=== PATIENT | female | born 1955 | race African-American/Black ===

== ENCOUNTER 2018-08-05 19:13 | Inpatient (IN) ==
[2018-08-05] MEDS ORDERED: ONDANSETRON 4 MG/2 ML VIAL IV PRN (21:05)
[2018-08-05] MEDS ORDERED: ALBUTEROL 2.5 MG/3 ML NEB RESP TX PRN (21:17)
[2018-08-05] MEDS ORDERED: hydrALAZINE 20 MG/1 ML VIAL IV PRN (21:18)
[2018-08-05 21:50] LABS: Basophils # 0.1 10*3/uL (0.0-0.2); Basophils % 0.4 % (0.0-0.8); Hematocrit 29.1 VOL% (35.7-47.0); Hemoglobin 8.7 GM/DL (12.0-16.0); Immature Granulocytes % 0.8 %; Lymphocytes # 1.7 10*3/uL (1.4-4.0); Mean Corpuscular HGB Conc 29.9 GM/DL (32-36); Mean Corpuscular Volume 87.7 FL (87-102); Mean Platelet Volume 10.2 FL (9.6-12.0); Monocytes % 15.5 % (1.7-12.7); Neutrophils % 69.3 % (38.7-73.9); Platelet Count 248 T/CUMM (130-400); Red Blood Count 3.32 MC/CUMM (3.8-5.5); Red Cell Distribution Width 15.6 % (9.3-17.3); White Blood Count 11.8 T/CUMM (4-12)
[2018-08-05] MEDS: SODIUM CHLORIDE 0.9% 1,000 ML IV SCH (21:56)
[2018-08-05 22:16] LABS: Albumin 2.7 G/DL (3.4-5.0); Bilirubin,Total 0.6 MG/DL (0.2-1.0); Calcium 10.7 MG/DL (8.5-10.1); Osmolality,Calculated 281.4 MOS/KG (273-304)
[2018-08-05] MEDS: AZITHROMYCIN INJ 500 MG in SODIUM CHLORIDE 0.9% 250 ML IV SCH (23:03)
[2018-08-06] MEDS ORDERED: VANCOMYCIN INJ 1,750 MG in SODIUM CHLORIDE 0.9% 500 ML IV ONE
[2018-08-06] MEDS: NORTRIPTYLINE 25 MG CAPSULE PO SCH ×2 (00:35→20:07)
[2018-08-06] MEDS: SIMVASTATIN 20 MG TABLET PO SCH ×2 (00:35→20:07)
[2018-08-06] MEDS: ALBUTEROL/IPRATROPIUM 3 ML NEB RESP TX SCH ×4 (01:02→19:49)
[2018-08-06 05:29] LABS: Basophils # 0.1 10*3/uL (0.0-0.2); Basophils % 0.5 % (0.0-0.8); Eosinophils % 0.1 % (0.00-10.9); Hematocrit 30.6 VOL% (35.7-47.0); Hemoglobin 9.1 GM/DL (12.0-16.0); Immature Granulocytes % 0.8 %; Lymphocytes # 1.8 10*3/uL (1.4-4.0); Lymphocytes % 15.1 % (21.3-54.2); Mean Corpuscular HGB Conc 29.7 GM/DL (32-36); Mean Corpuscular Volume 88.2 FL (87-102); Mean Platelet Volume 10.2 FL (9.6-12.0); Monocytes % 20.3 % (1.7-12.7); Neutrophils % 63.2 % (38.7-73.9); Platelet Count 269 T/CUMM (130-400); Red Blood Count 3.47 MC/CUMM (3.8-5.5); Red Cell Distribution Width 15.7 % (9.3-17.3); White Blood Count 12.2 T/CUMM (4-12)
[2018-08-06 05:50] LABS: Band Neutrophils 2 % (0-10); Eosinophils 2 % (0-10); Hypochromasia 1+; Lymphocytes 13 % (20-55); Platelet Estimate Adequate; Segmented Neutrophils 68 % (50-85); Total Cells Counted 100
[2018-08-06 06:00] LABS: Calcium 10.5 MG/DL (8.5-10.1); Osmolality,Calculated 280.5 MOS/KG (273-304)
[2018-08-06] MEDS ORDERED: ENOXAPARIN 100 MG/ML SYRINGE SUBCUT ONE (06:26)
[2018-08-06] MEDS ORDERED: ENOXAPARIN 100 MG/ML SYRINGE SUBCUT SCH (06:30)
[2018-08-06] MEDS ORDERED: amLODIPine 5 MG TABLET PO SCH (09:00)
[2018-08-06] MEDS ORDERED: METOPROLOL TARTRATE 50 MG TABLET PO SCH (09:00)
[2018-08-06] MEDS ORDERED: cefTRIAXone 1,000 MG in SYRINGE 1 EACH IV SCH (09:00)
[2018-08-06] MEDS ORDERED: ENOXAPARIN 40 MG/0.4 ML SYRINGE SUBCUT SCH (09:00)
[2018-08-06] MEDS: ASPIRIN EC 325 MG TABLET PO SCH (09:22)
[2018-08-06] MEDS: PANTOPRAZOLE 40 MG TABLET PO SCH (09:22)
[2018-08-06] MEDS: CETIRIZINE 10 MG TABLET PO SCH (09:22)
[2018-08-06] MEDS: POTASSIUM CHLORIDE 10 MEQ TABLET PO SCH (09:22)
[2018-08-06] MEDS: LISINOPRIL 20 MG TABLET PO SCH (09:22)
[2018-08-06] MEDS: MONTELUKAST 10 MG TABLET PO SCH (09:22)
[2018-08-06] MEDS: FLUTICASONE 50 MCG NASAL SPRAY 16 GM BOTTLE BOTH NARES SCH (09:23)
[2018-08-06] MEDS: FUROSEMIDE 40 MG TABLET PO SCH ×2 (09:24→09:38)
[2018-08-06] MEDS: CYCLOBENZAPRINE 10 MG TABLET PO SCH ×3 (09:26→20:07)
[2018-08-06] MEDS: IBUPROFEN 400 MG TABLET PO PRN (11:03)
[2018-08-06] MEDS: cefTRIAXone 2,000 MG in SYRINGE 1 EACH IV SCH (11:04)
[2018-08-06] MEDS: SODIUM CHLORIDE 0.9% 1,000 ML IV SCH (11:07)
[2018-08-06] MEDS: ENOXAPARIN 40 MG/0.4 ML SYRINGE SUBCUT SCH (12:56)
[2018-08-06] MEDS ORDERED: MORPHINE 4 MG/1 ML VIAL IV ONE (22:17)
[2018-08-06] MEDS: AZITHROMYCIN INJ 500 MG in SODIUM CHLORIDE 0.9% 250 ML IV SCH (22:38)
[2018-08-07] MEDS ORDERED: VANCOMYCIN INJ 1,750 MG in SODIUM CHLORIDE 0.9% 500 ML IV SCH
[2018-08-07] MEDS: ALBUTEROL/IPRATROPIUM 3 ML NEB RESP TX SCH ×4 (00:16→18:50)
[2018-08-07 05:22] LABS: Basophils # 0.1 10*3/uL (0.0-0.2); Basophils % 0.5 % (0.0-0.8); Eosinophils # 0.1 10*3/uL (0.0-0.87); Eosinophils % 0.9 % (0.00-10.9); Immature Granulocytes % 0.9 %; Immature Granulocytes Absolute 0.11 #; Lymphocytes # 1.9 10*3/uL (1.4-4.0); Lymphocytes % 15.1 % (21.3-54.2); Mean Corpuscular Volume 86.1 FL (87-102); Mean Platelet Volume 10.6 FL (9.6-12.0); Monocytes % 18.8 % (1.7-12.7); Neutrophils % 63.8 % (38.7-73.9); Platelet Count 269 T/CUMM (130-400); Red Blood Count 3.37 MC/CUMM (3.8-5.5); Red Cell Distribution Width 16.1 % (9.3-17.3); White Blood Count 12.8 T/CUMM (4-12)
[2018-08-07 05:49] LABS: Osmolality,Calculated 280.3 MOS/KG (273-304)
[2018-08-07 05:51] LABS: Eosinophils 1 % (0-10); Lymphocytes 10 % (20-55); Platelet Estimate Normal; Polychromasia Few; Segmented Neutrophils 76 % (50-85); Total Cells Counted 100
[2018-08-07] MEDS: POTASSIUM CHLORIDE 10 MEQ TABLET PO SCH (08:37)
[2018-08-07] MEDS: CYCLOBENZAPRINE 10 MG TABLET PO SCH ×3 (08:37→22:27)
[2018-08-07] MEDS: ASPIRIN EC 325 MG TABLET PO SCH (08:37)
[2018-08-07] MEDS: LISINOPRIL 20 MG TABLET PO SCH (08:37)
[2018-08-07] MEDS: PANTOPRAZOLE 40 MG TABLET PO SCH (08:38)
[2018-08-07] MEDS: CETIRIZINE 10 MG TABLET PO SCH (08:38)
[2018-08-07] MEDS: MONTELUKAST 10 MG TABLET PO SCH (08:38)
[2018-08-07] MEDS: SODIUM CHLORIDE 0.9% 1,000 ML IV SCH (08:43)
[2018-08-07] MEDS: FLUTICASONE 50 MCG NASAL SPRAY 16 GM BOTTLE BOTH NARES SCH (08:44)
[2018-08-07] MEDS: FUROSEMIDE 40 MG TABLET PO SCH (08:44)
[2018-08-07] MEDS: PIPERACILLIN/TAZOBACTAM 3,375 MG in SODIUM CHLORIDE 0.9% 100 ML IV SCH ×2 (10:51→19:11)
[2018-08-07] MEDS: LACTOBACILLUS ACIDOPHILUS/BULGARICUS CAPLET PO SCH (14:31)
[2018-08-07] MEDS: NAPROXEN 250 MG TABLET PO SCH ×2 (14:31→22:26)
[2018-08-07] MEDS: MULTIVITAMIN (BEROCCA) TABLET PO SCH (14:31)
[2018-08-07] MEDS: ENOXAPARIN 40 MG/0.4 ML SYRINGE SUBCUT SCH (14:32)
[2018-08-07] MEDS: VANCOMYCIN INJ 1,750 MG in SODIUM CHLORIDE 0.9% 500 ML IV SCH (14:58)
[2018-08-07] MEDS: CHOLECALCIFEROL 1,000 UNIT TABLET PO SCH (16:10)
[2018-08-07] MEDS: SIMVASTATIN 20 MG TABLET PO SCH (22:26)
[2018-08-07] MEDS: NORTRIPTYLINE 25 MG CAPSULE PO SCH (22:27)
[2018-08-07] MEDS: METOPROLOL TARTRATE 100 MG TABLET PO SCH (22:27)
[2018-08-07] MEDS: AZITHROMYCIN 250 MG TABLET PO SCH (22:27)
[2018-08-08] MEDS: IBUPROFEN 400 MG TABLET PO PRN (00:23)
[2018-08-08] MEDS: ALBUTEROL/IPRATROPIUM 3 ML NEB RESP TX SCH ×4 (00:26→19:13)
[2018-08-08] MEDS: VANCOMYCIN INJ 1,750 MG in SODIUM CHLORIDE 0.9% 500 ML IV SCH ×2 (03:11→17:37)
[2018-08-08] MEDS: PIPERACILLIN/TAZOBACTAM 3,375 MG in SODIUM CHLORIDE 0.9% 100 ML IV SCH ×4 (05:21→21:53)
[2018-08-08 05:44] LABS: Basophils # 0.1 10*3/uL (0.0-0.2); Basophils % 0.5 % (0.0-0.8); Eosinophils # 0.3 10*3/uL (0.0-0.87); Eosinophils % 1.8 % (0.00-10.9); Hematocrit 27.9 VOL% (35.7-47.0); Hemoglobin 8.2 GM/DL (12.0-16.0); Immature Granulocytes % 1.8 %; Immature Granulocytes Absolute 0.27 #; Lymphocytes # 2.3 10*3/uL (1.4-4.0); Lymphocytes % 14.9 % (21.3-54.2); Mean Corpuscular HGB Conc 29.4 GM/DL (32-36); Mean Corpuscular Volume 88.3 FL (87-102); Mean Platelet Volume 10.4 FL (9.6-12.0); Platelet Count 303 T/CUMM (130-400); Red Blood Count 3.16 MC/CUMM (3.8-5.5); Red Cell Distribution Width 16.3 % (9.3-17.3); White Blood Count 15.2 T/CUMM (4-12)
[2018-08-08 06:06] LABS: % Iron Saturation 12.9 % (18-50); Ferritin 412.6 ng/ml (8-252)
[2018-08-08 06:12] LABS: Calcium 9.9 MG/DL (8.5-10.1)
[2018-08-08 06:13] LABS: Folate 14.8 NG/ML (5.4-24.0); Vitamin B12 > 2000 PG/ML (211-911)
[2018-08-08 06:14] LABS: Eosinophils 2 % (0-10); Hypochromasia 1+; Lymphocytes 15 % (20-55); Segmented Neutrophils 73 % (50-85); Total Cells Counted 100
[2018-08-08 06:15] LABS: Burr Cells Slight; Microcytosis 1+; Platelet Estimate Normal
[2018-08-08 06:17] LABS: Hypochromasia 1+; Microcytosis 1+
[2018-08-08 06:48] LABS: Basophils # 0.1 10*3/uL (0.0-0.2); Basophils % 0.6 % (0.0-0.8); Eosinophils # 0.3 10*3/uL (0.0-0.87); Eosinophils % 1.8 % (0.00-10.9); Hematocrit 27.3 VOL% (35.7-47.0); Hemoglobin 8.3 GM/DL (12.0-16.0); Immature Granulocytes % 1.6 %; Immature Granulocytes Absolute 0.26 #; Lymphocytes # 2.3 10*3/uL (1.4-4.0); Lymphocytes % 14.3 % (21.3-54.2); Mean Corpuscular HGB Conc 30.4 GM/DL (32-36); Mean Corpuscular Volume 87.5 FL (87-102); Mean Platelet Volume 10.7 FL (9.6-12.0); Monocytes % 15.9 % (1.7-12.7); Neutrophils % 65.8 % (38.7-73.9); Platelet Count 316 T/CUMM (130-400); Red Blood Count 3.12 MC/CUMM (3.8-5.5); Red Cell Distribution Width 16.7 % (9.3-17.3); White Blood Count 16.1 T/CUMM (4-12)
[2018-08-08 06:51] LABS: Sedimentation Rate-Westergren 121 MM/HR (0-30)
[2018-08-08 07:16] LABS: Band Neutrophils 1 % (0-10); Eosinophils 2 % (0-10); Lymphocytes 14 % (20-55); Segmented Neutrophils 70 % (50-85); Total Cells Counted 100
[2018-08-08] MEDS: FUROSEMIDE 40 MG TABLET PO SCH (09:50)
[2018-08-08] MEDS: CETIRIZINE 10 MG TABLET PO SCH (09:50)
[2018-08-08] MEDS: MULTIVITAMIN (BEROCCA) TABLET PO SCH (09:50)
[2018-08-08] MEDS: NAPROXEN 250 MG TABLET PO SCH ×2 (09:50→21:52)
[2018-08-08] MEDS: LISINOPRIL 20 MG TABLET PO SCH (09:50)
[2018-08-08] MEDS: POTASSIUM CHLORIDE 10 MEQ TABLET PO SCH (09:50)
[2018-08-08] MEDS: METOPROLOL TARTRATE 100 MG TABLET PO SCH ×2 (09:50→21:52)
[2018-08-08] MEDS: DOCUSATE SODIUM 100 MG CAPSULE PO PRN ×2 (09:51→21:52)
[2018-08-08] MEDS: LACTOBACILLUS ACIDOPHILUS/BULGARICUS CAPLET PO SCH (09:51)
[2018-08-08] MEDS: PANTOPRAZOLE 40 MG TABLET PO SCH (09:51)
[2018-08-08] MEDS: ASPIRIN EC 325 MG TABLET PO SCH (09:51)
[2018-08-08] MEDS: CYCLOBENZAPRINE 10 MG TABLET PO SCH ×3 (09:51→21:52)
[2018-08-08] MEDS: MONTELUKAST 10 MG TABLET PO SCH (09:51)
[2018-08-08] MEDS: FLUTICASONE 50 MCG NASAL SPRAY 16 GM BOTTLE BOTH NARES SCH (09:52)
[2018-08-08] MEDS: CHOLECALCIFEROL 1,000 UNIT TABLET PO SCH (10:24)
[2018-08-08] MEDS: SODIUM CHLORIDE 0.9% 1,000 ML IV SCH (13:22)
[2018-08-08] MEDS: ENOXAPARIN 40 MG/0.4 ML SYRINGE SUBCUT SCH (13:26)
[2018-08-08] MEDS: AZITHROMYCIN 250 MG TABLET PO SCH (21:52)
[2018-08-08] MEDS: NORTRIPTYLINE 25 MG CAPSULE PO SCH (21:52)
[2018-08-08] MEDS: SIMVASTATIN 20 MG TABLET PO SCH (21:52)
[2018-08-09] MEDS: ALBUTEROL/IPRATROPIUM 3 ML NEB RESP TX SCH ×4 (00:33→18:30)
[2018-08-09 02:48] LABS: Basophils # 0.1 10*3/uL (0.0-0.2); Basophils % 0.6 % (0.0-0.8); Eosinophils # 0.5 10*3/uL (0.0-0.87); Eosinophils % 2.1 % (0.00-10.9); Hematocrit 31.5 VOL% (35.7-47.0); Hemoglobin 9.3 GM/DL (12.0-16.0); Immature Granulocytes % 1.9 %; Immature Granulocytes Absolute 0.44 #; Lymphocytes # 2.7 10*3/uL (1.4-4.0); Mean Corpuscular HGB Conc 29.5 GM/DL (32-36); Mean Corpuscular Volume 90.5 FL (87-102); Mean Platelet Volume 10.8 FL (9.6-12.0); Neutrophils % 70.4 % (38.7-73.9); Platelet Count 358 T/CUMM (130-400); Red Blood Count 3.48 MC/CUMM (3.8-5.5); Red Cell Distribution Width 16.7 % (9.3-17.3); White Blood Count 22.7 T/CUMM (4-12)
[2018-08-09] MEDS: PIPERACILLIN/TAZOBACTAM 3,375 MG in SODIUM CHLORIDE 0.9% 100 ML IV SCH ×3 (03:16→17:30)
[2018-08-09 03:32] LABS: Calcium 9.9 MG/DL (8.5-10.1); Osmolality,Calculated 281.4 MOS/KG (273-304)
[2018-08-09 05:17] LABS: Eosinophils 1 % (0-10); Hypochromasia Slight; Lymphocytes 7 % (20-55); Metamyelocytes 1 %; Platelet Estimate Normal; Polychromasia Few; Segmented Neutrophils 82 % (50-85); Total Cells Counted 100
[2018-08-09] MEDS: SODIUM CHLORIDE 0.9% 1,000 ML IV SCH ×3 (07:57→17:28)
[2018-08-09] MEDS: cefTRIAXone 2,000 MG in SYRINGE 1 EACH IV SCH (07:59)
[2018-08-09] MEDS: MONTELUKAST 10 MG TABLET PO SCH (08:34)
[2018-08-09] MEDS: CHOLECALCIFEROL 1,000 UNIT TABLET PO SCH (08:34)
[2018-08-09] MEDS: MULTIVITAMIN (BEROCCA) TABLET PO SCH (08:34)
[2018-08-09] MEDS: CYCLOBENZAPRINE 10 MG TABLET PO SCH ×3 (08:34→20:24)
[2018-08-09] MEDS: NAPROXEN 250 MG TABLET PO SCH (08:34)
[2018-08-09] MEDS: LISINOPRIL 20 MG TABLET PO SCH (08:34)
[2018-08-09] MEDS: LACTOBACILLUS ACIDOPHILUS/BULGARICUS CAPLET PO SCH (08:34)
[2018-08-09] MEDS: CETIRIZINE 10 MG TABLET PO SCH (08:34)
[2018-08-09] MEDS: FUROSEMIDE 40 MG TABLET PO SCH (08:35)
[2018-08-09] MEDS: PANTOPRAZOLE 40 MG TABLET PO SCH (08:35)
[2018-08-09] MEDS: POTASSIUM CHLORIDE 10 MEQ TABLET PO SCH (08:35)
[2018-08-09] MEDS: METOPROLOL TARTRATE 100 MG TABLET PO SCH ×2 (08:35→20:24)
[2018-08-09] MEDS: FLUTICASONE 50 MCG NASAL SPRAY 16 GM BOTTLE BOTH NARES SCH (08:40)
[2018-08-09] MEDS: ASPIRIN EC 325 MG TABLET PO SCH (08:40)
[2018-08-09 10:32] LABS: Lymphocytes,Pleural Fluid 18 %; Monocytes,Pleural Fluid 6 %; Neutrophils,Pleural Fluid 76 %
[2018-08-09 10:34] LABS: RBC,Pleural Fluid 4432 T/CUMM
[2018-08-09 10:50] LABS: Total Protein,Pleural Fluid 4.3 G/DL
[2018-08-09] MEDS: ENOXAPARIN 40 MG/0.4 ML SYRINGE SUBCUT SCH (11:01)
[2018-08-09 11:03] LABS: Free T4 (Free Thyroxine) 1.52 NG/DL (0.76-1.46); Thyroid Stimulating Hormone 2.85 uIU/ml (0.358-3.74)
[2018-08-09] MEDS ORDERED: VANCOMYCIN INJ 1,750 MG in SODIUM CHLORIDE 0.9% 500 ML IV SCH (12:00)
[2018-08-09 12:54] LABS: Hemoglobin A1 (Alkaline) 96.8 % (96.5-98.5); Hemoglobin A2 (Alkaline) 3.2 % (1.5-3.5)
[2018-08-09 13:14] LABS: ABG Base Excess -6.9 MMOL/L (-2.5-2.5); ABG HCO3 18.8 MMOL/L (20-26); ABG Oxygen Saturation 97.3 % (95-100); ABG PCO2 33.6 MM HG (35-48); ABG PH 7.339 (7.35-7.45); ABG PO2 98.5 MM HG (80-95); ABG TCO2 16.2 MMOL/L (23-27)
[2018-08-09] MEDS: NORTRIPTYLINE 25 MG CAPSULE PO SCH (20:24)
[2018-08-09] MEDS: AZITHROMYCIN 250 MG TABLET PO SCH (20:24)
[2018-08-09] MEDS: SIMVASTATIN 20 MG TABLET PO SCH (20:25)
[2018-08-09] MEDS: DOCUSATE SODIUM 100 MG CAPSULE PO PRN (20:25)
[2018-08-10] MEDS: ALBUTEROL/IPRATROPIUM 3 ML NEB RESP TX SCH ×4 (00:20→19:05)
[2018-08-10] MEDS: PIPERACILLIN/TAZOBACTAM 3,375 MG in SODIUM CHLORIDE 0.9% 100 ML IV SCH (02:50)
[2018-08-10 05:18] LABS: Basophils # 0.1 10*3/uL (0.0-0.2); Basophils % 0.5 % (0.0-0.8); Eosinophils # 0.6 10*3/uL (0.0-0.87); Eosinophils % 2.6 % (0.00-10.9); Hematocrit 27.8 VOL% (35.7-47.0); Hemoglobin 8.6 GM/DL (12.0-16.0); Immature Granulocytes % 1.9 %; Immature Granulocytes Absolute 0.42 #; Lymphocytes # 3.4 10*3/uL (1.4-4.0); Lymphocytes % 15.3 % (21.3-54.2); Mean Corpuscular HGB Conc 30.9 GM/DL (32-36); Mean Corpuscular Volume 84.8 FL (87-102); Mean Platelet Volume 10.2 FL (9.6-12.0); Neutrophils % 68.7 % (38.7-73.9); Platelet Count 499 T/CUMM (130-400); Red Blood Count 3.28 MC/CUMM (3.8-5.5); Red Cell Distribution Width 16.9 % (9.3-17.3)
[2018-08-10 05:32] LABS: Calcium 9.8 MG/DL (8.5-10.1); Osmolality,Calculated 286.1 MOS/KG (273-304)
[2018-08-10 06:04] LABS: Anisocytosis 1+; Eosinophils 2 % (0-10); Giant Platelets Few; Lymphocytes 17 % (20-55); Macrocytosis 1+; Platelet Estimate Increased; Segmented Neutrophils 71 % (50-85); Total Cells Counted 100
[2018-08-10] MEDS: ASPIRIN EC 325 MG TABLET PO SCH ×2 (09:19→14:09)
[2018-08-10] MEDS: LACTOBACILLUS ACIDOPHILUS/BULGARICUS CAPLET PO SCH ×2 (09:19→14:09)
[2018-08-10] MEDS: CHOLECALCIFEROL 1,000 UNIT TABLET PO SCH ×2 (09:20→14:08)
[2018-08-10] MEDS: POTASSIUM CHLORIDE 10 MEQ TABLET PO SCH ×2 (09:20→14:09)
[2018-08-10] MEDS: METOPROLOL TARTRATE 100 MG TABLET PO SCH ×3 (09:20→20:53)
[2018-08-10] MEDS: CETIRIZINE 10 MG TABLET PO SCH ×2 (09:20→14:08)
[2018-08-10] MEDS: CYCLOBENZAPRINE 10 MG TABLET PO SCH ×3 (09:20→20:53)
[2018-08-10] MEDS: FUROSEMIDE 40 MG TABLET PO SCH ×2 (09:20→14:09)
[2018-08-10] MEDS: PANTOPRAZOLE 40 MG TABLET PO SCH ×2 (09:20→14:08)
[2018-08-10] MEDS: FLUTICASONE 50 MCG NASAL SPRAY 16 GM BOTTLE BOTH NARES SCH (09:20)
[2018-08-10] MEDS: MULTIVITAMIN (BEROCCA) TABLET PO SCH ×2 (09:20→14:09)
[2018-08-10] MEDS: MONTELUKAST 10 MG TABLET PO SCH ×2 (09:20→14:08)
[2018-08-10] MEDS: SODIUM CHLORIDE 0.9% 1,000 ML IV SCH ×3 (09:21→16:46)
[2018-08-10] MEDS: ENOXAPARIN 30 MG/0.3 ML SYRINGE SUBCUT SCH (11:50)
[2018-08-10] MEDS ORDERED: PIPERACILLIN/TAZOBACTAM 3,375 MG in SODIUM CHLORIDE 0.9% 100 ML IV SCH (16:00)
[2018-08-10] MEDS: cefTRIAXone 2,000 MG in SYRINGE 1 EACH IV SCH (16:45)
[2018-08-10] MEDS: CLINDAMYCIN INJ 600 MG in PREMIX 1 EACH IV SCH (16:47)
[2018-08-10] MEDS: LEVOFLOXACIN INJ 500 MG in PREMIX 1 EACH IV SCH (20:53)
[2018-08-10] MEDS: SIMVASTATIN 20 MG TABLET PO SCH (20:53)
[2018-08-10] MEDS: NORTRIPTYLINE 25 MG CAPSULE PO SCH (20:53)
[2018-08-11] MEDS: ALBUTEROL/IPRATROPIUM 3 ML NEB RESP TX SCH ×4 (00:30→19:25)
[2018-08-11] MEDS: CLINDAMYCIN INJ 600 MG in PREMIX 1 EACH IV SCH ×3 (01:04→16:59)
[2018-08-11] MEDS: SODIUM CHLORIDE 0.9% 1,000 ML IV SCH ×2 (05:05→21:15)
[2018-08-11 05:34] LABS: Basophils # 0.1 10*3/uL (0.0-0.2); Basophils % 0.5 % (0.0-0.8); Eosinophils # 0.1 10*3/uL (0.0-0.87); Eosinophils % 0.5 % (0.00-10.9); Hematocrit 25.6 VOL% (35.7-47.0); Immature Granulocytes % 3.6 %; Immature Granulocytes Absolute 0.86 #; Lymphocytes # 2.5 10*3/uL (1.4-4.0); Lymphocytes % 10.3 % (21.3-54.2); Mean Corpuscular HGB Conc 31.3 GM/DL (32-36); Mean Corpuscular Volume 84.8 FL (87-102); Mean Platelet Volume 9.9 FL (9.6-12.0); Monocytes % 10.9 % (1.7-12.7); Neutrophils % 74.2 % (38.7-73.9); Platelet Count 516 T/CUMM (130-400); Red Blood Count 3.02 MC/CUMM (3.8-5.5); Red Cell Distribution Width 17.2 % (9.3-17.3); White Blood Count 24.1 T/CUMM (4-12)
[2018-08-11 05:46] LABS: Calcium 9.6 MG/DL (8.5-10.1); Osmolality,Calculated 285.1 MOS/KG (273-304)
[2018-08-11 05:56] LABS: Lymphocytes 5 % (20-55); Platelet Estimate Normal; Segmented Neutrophils 91 % (50-85); Total Cells Counted 100
[2018-08-11 05:57] LABS: Hypochromasia 1+; Microcytosis 1+; Polychromasia Few
[2018-08-11] MEDS: ASPIRIN EC 325 MG TABLET PO SCH (08:02)
[2018-08-11] MEDS: METOPROLOL TARTRATE 100 MG TABLET PO SCH ×2 (08:02→21:12)
[2018-08-11] MEDS: PANTOPRAZOLE 40 MG TABLET PO SCH (08:02)
[2018-08-11] MEDS: CYCLOBENZAPRINE 10 MG TABLET PO SCH ×3 (08:02→21:20)
[2018-08-11] MEDS: LACTOBACILLUS ACIDOPHILUS/BULGARICUS CAPLET PO SCH (08:02)
[2018-08-11] MEDS: MONTELUKAST 10 MG TABLET PO SCH (08:02)
[2018-08-11] MEDS: FLUTICASONE 50 MCG NASAL SPRAY 16 GM BOTTLE BOTH NARES SCH (08:02)
[2018-08-11] MEDS: POTASSIUM CHLORIDE 10 MEQ TABLET PO SCH (08:02)
[2018-08-11] MEDS: CETIRIZINE 10 MG TABLET PO SCH (08:02)
[2018-08-11] MEDS: FUROSEMIDE 40 MG TABLET PO SCH (08:02)
[2018-08-11] MEDS: CHOLECALCIFEROL 1,000 UNIT TABLET PO SCH (08:02)
[2018-08-11] MEDS: MULTIVITAMIN (BEROCCA) TABLET PO SCH (08:03)
[2018-08-11] MEDS: ENOXAPARIN 30 MG/0.3 ML SYRINGE SUBCUT SCH (11:01)
[2018-08-11] MEDS: cefTRIAXone 2,000 MG in SYRINGE 1 EACH IV SCH (15:38)
[2018-08-11] MEDS: FERROUS SULFATE 325 MG TABLET PO SCH (21:11)
[2018-08-11] MEDS: SIMVASTATIN 20 MG TABLET PO SCH (21:12)
[2018-08-11] MEDS: NORTRIPTYLINE 25 MG CAPSULE PO SCH (21:20)
[2018-08-12] MEDS: ALBUTEROL/IPRATROPIUM 3 ML NEB RESP TX SCH ×4 (01:01→20:01)
[2018-08-12] MEDS: CLINDAMYCIN INJ 600 MG in PREMIX 1 EACH IV SCH ×3 (01:24→18:18)
[2018-08-12 06:05] LABS: Basophils # 0.1 10*3/uL (0.0-0.2); Basophils % 0.5 % (0.0-0.8); Eosinophils # 0.1 10*3/uL (0.0-0.87); Eosinophils % 0.3 % (0.00-10.9); Hematocrit 25.7 VOL% (35.7-47.0); Hemoglobin 7.9 GM/DL (12.0-16.0); Immature Granulocytes % 4.1 %; Immature Granulocytes Absolute 0.92 #; Lymphocytes # 2.3 10*3/uL (1.4-4.0); Lymphocytes % 10.5 % (21.3-54.2); Mean Corpuscular HGB Conc 30.7 GM/DL (32-36); Mean Corpuscular Volume 84.5 FL (87-102); Mean Platelet Volume 9.4 FL (9.6-12.0); Monocytes % 11.4 % (1.7-12.7); NRBC # 0.02 10*3/uL; Neutrophils % 73.2 % (38.7-73.9); Platelet Count 573 T/CUMM (130-400); Red Blood Count 3.04 MC/CUMM (3.8-5.5); Red Cell Distribution Width 17.3 % (9.3-17.3); White Blood Count 22.3 T/CUMM (4-12)
[2018-08-12 06:50] LABS: Calcium 9.7 MG/DL (8.5-10.1)
[2018-08-12 06:52] LABS: Band Neutrophils 1 % (0-10); Hypochromasia 1+; Lymphocytes 9 % (20-55); Microcytosis 1+; Segmented Neutrophils 80 % (50-85); Total Cells Counted 100
[2018-08-12] MEDS: CHOLECALCIFEROL 1,000 UNIT TABLET PO SCH (08:00)
[2018-08-12] MEDS: PANTOPRAZOLE 40 MG TABLET PO SCH (08:00)
[2018-08-12] MEDS: FUROSEMIDE 40 MG TABLET PO SCH (08:00)
[2018-08-12] MEDS: MONTELUKAST 10 MG TABLET PO SCH (08:00)
[2018-08-12] MEDS: POTASSIUM CHLORIDE 10 MEQ TABLET PO SCH (08:00)
[2018-08-12] MEDS: METOPROLOL TARTRATE 100 MG TABLET PO SCH ×2 (08:00→22:15)
[2018-08-12] MEDS: CETIRIZINE 10 MG TABLET PO SCH (08:00)
[2018-08-12] MEDS: FERROUS SULFATE 325 MG TABLET PO SCH ×2 (08:00→22:16)
[2018-08-12] MEDS: CYCLOBENZAPRINE 10 MG TABLET PO SCH ×3 (08:00→22:15)
[2018-08-12] MEDS: LACTOBACILLUS ACIDOPHILUS/BULGARICUS CAPLET PO SCH (08:01)
[2018-08-12] MEDS: MULTIVITAMIN (BEROCCA) TABLET PO SCH (08:01)
[2018-08-12] MEDS: ASPIRIN EC 325 MG TABLET PO SCH (08:01)
[2018-08-12] MEDS: FLUTICASONE 50 MCG NASAL SPRAY 16 GM BOTTLE BOTH NARES SCH (08:01)
[2018-08-12] MEDS: ENOXAPARIN 30 MG/0.3 ML SYRINGE SUBCUT SCH (12:04)
[2018-08-12] MEDS: cefTRIAXone 2,000 MG in SYRINGE 1 EACH IV SCH (14:50)
[2018-08-12] MEDS: LEVOFLOXACIN INJ 500 MG in PREMIX 1 EACH IV SCH (22:11)
[2018-08-12] MEDS: SIMVASTATIN 20 MG TABLET PO SCH (22:16)
[2018-08-12] MEDS: NORTRIPTYLINE 25 MG CAPSULE PO SCH (22:16)
[2018-08-13] MEDS: ALBUTEROL/IPRATROPIUM 3 ML NEB RESP TX SCH ×4 (00:13→19:10)
[2018-08-13] MEDS: CLINDAMYCIN INJ 600 MG in PREMIX 1 EACH IV SCH ×3 (01:42→16:56)
[2018-08-13 04:54] LABS: Basophils # 0.1 10*3/uL (0.0-0.2); Basophils % 0.4 % (0.0-0.8); Eosinophils # 0.2 10*3/uL (0.0-0.87); Eosinophils % 1.1 % (0.00-10.9); Hematocrit 22.1 VOL% (35.7-47.0); Hemoglobin 6.9 GM/DL (12.0-16.0); Immature Granulocytes % 4.1 %; Immature Granulocytes Absolute 0.74 #; Lymphocytes # 2.1 10*3/uL (1.4-4.0); Lymphocytes % 11.9 % (21.3-54.2); Mean Corpuscular HGB Conc 31.2 GM/DL (32-36); Mean Corpuscular Volume 83.4 FL (87-102); Mean Platelet Volume 9.4 FL (9.6-12.0); Monocytes % 11.8 % (1.7-12.7); NRBC # 0.02 10*3/uL; Neutrophils % 70.7 % (38.7-73.9); Platelet Count 511 T/CUMM (130-400); Red Blood Count 2.65 MC/CUMM (3.8-5.5); Red Cell Distribution Width 17.2 % (9.3-17.3)
[2018-08-13 05:30] LABS: Calcium 9.4 MG/DL (8.5-10.1); Osmolality,Calculated 288.7 MOS/KG (273-304)
[2018-08-13 05:37] LABS: Band Neutrophils 1 % (0-10); Lymphocytes 10 % (20-55); Platelet Estimate Increased; Segmented Neutrophils 79 % (50-85); Total Cells Counted 100
[2018-08-13] MEDS ORDERED: ALBUTEROL/IPRATROPIUM 3 ML NEB RESP TX ONE (06:00)
[2018-08-13] MEDS ORDERED: FAMOTIDINE 20 MG TABLET PO ONE (06:00)
[2018-08-13] MEDS ORDERED: CEFUROXIME INJ 1,500 MG in SYRINGE 1 EACH IV ONE (06:00)
[2018-08-13] MEDS ORDERED: BUPIVACAINE LIPOSOMAL 20 ML/266 MG VIAL ONE (06:41)
[2018-08-13] MEDS ORDERED: TISSUE ADHESIVE 1 EACH APPLICATOR TOP ONE (06:41)
[2018-08-13] MEDS ORDERED: TALC INTRAPLEURAL POWDER 3 GM VIAL INTRAPLEUR ONE (06:41)
[2018-08-13] MEDS ORDERED: ONDANSETRON 4 MG/2 ML VIAL IV PRN (10:20)
[2018-08-13 10:26] LABS: Amorphous Crystals,Urine Occasional /HPF (Few); Apearance,Urine CLEAR (Clear); Bilirubin,Urine Negative (Negative); Blood, Urine Negative (Negative); Glucose,Urine (UA) Negative (Negative); Ketones,Urine Negative (Negative); Mucus,Urine Occasional /LPF (Occasional); Nitrite,Urine Negative (Negative); Protein,Urine 30 MG/DL; Urine Color Yellow (Yellow); Urine Specific Gravity 1.008 (1.001-1.035); Urine Urobilinogen < 2.0 EU/DL (0.2-1.0)
[2018-08-13] MEDS ORDERED: POTASSIUM CHLORIDE INJ 10 MEQ in SODIUM CHLORIDE 0.45% 1,000 ML IV SCH (10:30)
[2018-08-13] MEDS ORDERED: KETOROLAC 15 MG/1 ML VIAL IV SCH (10:30)
[2018-08-13] MEDS ORDERED: GLYCOPYRROLATE 0.4 MG/2 ML VIAL ONE (10:32)
[2018-08-13] MEDS ORDERED: PROPOFOL 200 MG/20 ML VIAL IV ONE (10:32)
[2018-08-13] MEDS ORDERED: ACETAMINOPHEN 1,000 MG/100 ML VIAL IV ONE (10:32)
[2018-08-13] MEDS ORDERED: fentaNYL 100 MCG/2 ML VIAL ONE (10:32)
[2018-08-13] MEDS ORDERED: MIDAZOLAM 2 MG/2 ML VIAL ONE (10:32)
[2018-08-13] MEDS ORDERED: ROCURONIUM 100 MG/10 ML VIAL IV ONE (10:33)
[2018-08-13] MEDS ORDERED: SUCCINYLCHOLINE 200 MG/10 ML VIAL ONE (10:33)
[2018-08-13] MEDS ORDERED: NEOSTIGMINE 10 MG/10 ML VIAL ONE (10:33)
[2018-08-13] MEDS ORDERED: PROPOFOL 1,000 MG/100 ML BOTTLE IV ONE (10:35)
[2018-08-13] MEDS: PROPOFOL 1,000 MG/100 ML BOTTLE IV SCH ×2 (10:40→13:14)
[2018-08-13] MEDS: ENOXAPARIN 30 MG/0.3 ML SYRINGE SUBCUT SCH (12:02)
[2018-08-13] MEDS: FLUTICASONE 50 MCG NASAL SPRAY 16 GM BOTTLE BOTH NARES SCH (12:05)
[2018-08-13] MEDS: POTASSIUM CHLORIDE 10 MEQ TABLET PO SCH (12:21)
[2018-08-13] MEDS: FERROUS SULFATE 325 MG TABLET PO SCH ×2 (12:21→21:11)
[2018-08-13] MEDS: FUROSEMIDE 40 MG TABLET PO SCH (12:21)
[2018-08-13] MEDS: CHOLECALCIFEROL 1,000 UNIT TABLET PO SCH (12:21)
[2018-08-13] MEDS: METOPROLOL TARTRATE 100 MG TABLET PO SCH ×2 (12:21→21:11)
[2018-08-13] MEDS: MULTIVITAMIN (BEROCCA) TABLET PO SCH (12:21)
[2018-08-13] MEDS: CETIRIZINE 10 MG TABLET PO SCH (12:21)
[2018-08-13] MEDS: MONTELUKAST 10 MG TABLET PO SCH (12:21)
[2018-08-13] MEDS: CYCLOBENZAPRINE 10 MG TABLET PO SCH ×3 (12:22→21:11)
[2018-08-13] MEDS: ASPIRIN EC 325 MG TABLET PO SCH (12:22)
[2018-08-13] MEDS: LACTOBACILLUS ACIDOPHILUS/BULGARICUS CAPLET PO SCH (12:30)
[2018-08-13 12:39] LABS: Basophils # 0.1 10*3/uL (0.0-0.2); Basophils % 0.4 % (0.0-0.8); Eosinophils # 0.1 10*3/uL (0.0-0.87); Eosinophils % 0.4 % (0.00-10.9); Hematocrit 22.2 VOL% (35.7-47.0); Hemoglobin 6.6 GM/DL (12.0-16.0); Immature Granulocytes % 4.9 %; Immature Granulocytes Absolute 1.04 #; Lymphocytes # 1.8 10*3/uL (1.4-4.0); Lymphocytes % 8.4 % (21.3-54.2); Mean Corpuscular HGB Conc 29.7 GM/DL (32-36); Mean Corpuscular Volume 87.4 FL (87-102); Monocytes % 12.7 % (1.7-12.7); NRBC # 0.02 10*3/uL; Neutrophils % 73.2 % (38.7-73.9); Platelet Count 492 T/CUMM (130-400); Red Blood Count 2.54 MC/CUMM (3.8-5.5); Red Cell Distribution Width 17.6 % (9.3-17.3); White Blood Count 21.1 T/CUMM (4-12)
[2018-08-13 12:58] LABS: Calcium 9.2 MG/DL (8.5-10.1); Osmolality,Calculated 291.7 MOS/KG (273-304)
[2018-08-13 13:18] LABS: Band Neutrophils 6 % (0-10); Lymphocytes 10 % (20-55); Platelet Estimate Normal; Segmented Neutrophils 76 % (50-85); Total Cells Counted 100
[2018-08-13 13:19] LABS: Anisocytosis 1+; Macrocytosis Slight
[2018-08-13] MEDS ORDERED: PHENYLEPHRINE DRIP 40 MG/250 ML PREMIX IV ONE (13:24)
[2018-08-13] MEDS: PANTOPRAZOLE 40 MG TABLET PO SCH (14:59)
[2018-08-13] MEDS: SODIUM CHLORIDE 0.9% 1,000 ML IV SCH ×2 (15:01→15:03)
[2018-08-13] MEDS: GABAPENTIN 100 MG CAPSULE PO SCH ×2 (15:24→21:12)
[2018-08-13] MEDS: cefTRIAXone 2,000 MG in SYRINGE 1 EACH IV SCH (15:27)
[2018-08-13] MEDS: ACETAMINOPHEN INJ 1,000 MG in PREMIX 1 EACH IV SCH ×2 (16:14→22:10)
[2018-08-13] MEDS: CEFUROXIME INJ 1,500 MG in SYRINGE 1 EACH IV SCH (18:00)
[2018-08-13] MEDS: SIMVASTATIN 20 MG TABLET PO SCH (21:12)
[2018-08-13] MEDS: NORTRIPTYLINE 25 MG CAPSULE PO SCH (21:13)
[2018-08-14] MEDS: CLINDAMYCIN INJ 600 MG in PREMIX 1 EACH IV SCH ×3 (02:16→18:27)
[2018-08-14] MEDS: ACETAMINOPHEN 500 MG TABLET PO SCH ×4 (04:19→22:10)
[2018-08-14] MEDS: SODIUM CHLORIDE 0.9% 1,000 ML IV SCH ×4 (04:43→22:10)
[2018-08-14 05:02] LABS: Basophils # 0.1 10*3/uL (0.0-0.2); Basophils % 0.4 % (0.0-0.8); Eosinophils # 0.4 10*3/uL (0.0-0.87); Eosinophils % 2.1 % (0.00-10.9); Hematocrit 19.3 VOL% (35.7-47.0); Immature Granulocytes % 2.8 %; Immature Granulocytes Absolute 0.51 #; Lymphocytes # 2.7 10*3/uL (1.4-4.0); Lymphocytes % 15.1 % (21.3-54.2); Mean Corpuscular HGB Conc 30.6 GM/DL (32-36); Mean Corpuscular Volume 85.4 FL (87-102); Mean Platelet Volume 9.3 FL (9.6-12.0); Monocytes % 10.4 % (1.7-12.7); Neutrophils % 69.2 % (38.7-73.9); Platelet Count 451 T/CUMM (130-400); Red Blood Count 2.26 MC/CUMM (3.8-5.5); Red Cell Distribution Width 17.6 % (9.3-17.3); White Blood Count 18.2 T/CUMM (4-12)
[2018-08-14 05:05] LABS: Hemoglobin 5.9 GM/DL (12.0-16.0)
[2018-08-14] MEDS ORDERED: SODIUM CHLORIDE 0.9% 1,000 ML IV PRN (05:19)
[2018-08-14 05:29] LABS: Calcium 8.8 MG/DL (8.5-10.1); Osmolality,Calculated 290.6 MOS/KG (273-304)
[2018-08-14] MEDS: CEFUROXIME INJ 1,500 MG in SYRINGE 1 EACH IV SCH (05:36)
[2018-08-14] MEDS: ENOXAPARIN 30 MG/0.3 ML SYRINGE SUBCUT SCH (05:36)
[2018-08-14] MEDS ORDERED: ENOXAPARIN 40 MG/0.4 ML SYRINGE SUBCUT SCH (06:00)
[2018-08-14 06:15] LABS: Anisocytosis 1+; Eosinophils 1 % (0-10); Hypochromasia 1+; Lymphocytes 11 % (20-55); Microcytosis 1+; Ovalocytes Slight; Platelet Estimate Adequate; Segmented Neutrophils 86 % (50-85); Total Cells Counted 100
[2018-08-14] MEDS: ALBUTEROL/IPRATROPIUM 3 ML NEB RESP TX SCH ×4 (07:00→22:11)
[2018-08-14] MEDS: CETIRIZINE 10 MG TABLET PO SCH (09:57)
[2018-08-14] MEDS: GABAPENTIN 100 MG CAPSULE PO SCH ×3 (09:58→20:36)
[2018-08-14] MEDS: ASPIRIN EC 325 MG TABLET PO SCH (09:58)
[2018-08-14] MEDS: CYCLOBENZAPRINE 10 MG TABLET PO SCH ×3 (09:58→20:35)
[2018-08-14] MEDS: METOPROLOL TARTRATE 100 MG TABLET PO SCH ×2 (09:58→20:35)
[2018-08-14] MEDS: CHOLECALCIFEROL 1,000 UNIT TABLET PO SCH (09:59)
[2018-08-14] MEDS: MONTELUKAST 10 MG TABLET PO SCH (09:59)
[2018-08-14] MEDS: MULTIVITAMIN (BEROCCA) TABLET PO SCH (10:00)
[2018-08-14] MEDS: LACTOBACILLUS ACIDOPHILUS/BULGARICUS CAPLET PO SCH (10:00)
[2018-08-14] MEDS: FERROUS SULFATE 325 MG TABLET PO SCH ×2 (10:01→20:35)
[2018-08-14] MEDS: POTASSIUM CHLORIDE 10 MEQ TABLET PO SCH (10:01)
[2018-08-14] MEDS: FUROSEMIDE 40 MG TABLET PO SCH (10:02)
[2018-08-14] MEDS: FAMOTIDINE 20 MG/2 ML VIAL IV SCH (10:09)
[2018-08-14] MEDS: FLUTICASONE 50 MCG NASAL SPRAY 16 GM BOTTLE BOTH NARES SCH (10:25)
[2018-08-14 14:22] LABS: Hematocrit 27.6 VOL% (35.7-47.0); Hemoglobin 8.6 GM/DL (12.0-16.0)
[2018-08-14] MEDS: PROPOFOL 1,000 MG/100 ML BOTTLE IV SCH (15:19)
[2018-08-14] MEDS: cefTRIAXone 2,000 MG in SYRINGE 1 EACH IV SCH (15:31)
[2018-08-14] MEDS: SIMVASTATIN 20 MG TABLET PO SCH (20:35)
[2018-08-14] MEDS: LEVOFLOXACIN INJ 500 MG in PREMIX 1 EACH IV SCH (20:36)
[2018-08-14] MEDS: NORTRIPTYLINE 25 MG CAPSULE PO SCH (20:37)
[2018-08-15] MEDS: CLINDAMYCIN INJ 600 MG in PREMIX 1 EACH IV SCH ×3 (00:05→16:52)
[2018-08-15] MEDS: ALBUTEROL/IPRATROPIUM 3 ML NEB RESP TX SCH ×4 (01:19→19:23)
[2018-08-15] MEDS: ACETAMINOPHEN 500 MG TABLET PO SCH ×4 (04:40→22:40)
[2018-08-15] MEDS: ENOXAPARIN 30 MG/0.3 ML SYRINGE SUBCUT SCH (05:00)
[2018-08-15 05:08] LABS: Basophils # 0.1 10*3/uL (0.0-0.2); Basophils % 0.6 % (0.0-0.8); Eosinophils # 0.6 10*3/uL (0.0-0.87); Hematocrit 26.8 VOL% (35.7-47.0); Hemoglobin 8.5 GM/DL (12.0-16.0); Immature Granulocytes % 3.1 %; Immature Granulocytes Absolute 0.59 #; Lymphocytes # 2.6 10*3/uL (1.4-4.0); Lymphocytes % 13.6 % (21.3-54.2); Mean Corpuscular HGB Conc 31.7 GM/DL (32-36); Mean Corpuscular Volume 85.6 FL (87-102); Mean Platelet Volume 9.7 FL (9.6-12.0); Monocytes % 11.3 % (1.7-12.7); Neutrophils % 68.4 % (38.7-73.9); Platelet Count 501 T/CUMM (130-400); Red Blood Count 3.13 MC/CUMM (3.8-5.5); Red Cell Distribution Width 16.8 % (9.3-17.3)
[2018-08-15 05:26] LABS: Calcium 8.8 MG/DL (8.5-10.1); Osmolality,Calculated 294.3 MOS/KG (273-304)
[2018-08-15 05:45] LABS: Band Neutrophils 2 % (0-10); Eosinophils 3 % (0-10); Lymphocytes 14 % (20-55); Metamyelocytes 1 %; Myelocytes 1 %; Segmented Neutrophils 72 % (50-85); Total Cells Counted 100
[2018-08-15 05:46] LABS: Anisocytosis 1+; Hypochromasia 1+; Platelet Estimate Adequate; Target Cells Few
[2018-08-15] MEDS ORDERED: SODIUM CHLORIDE 0.45% 1,000 ML IV SCH (07:00)
[2018-08-15] MEDS: FAMOTIDINE 20 MG/2 ML VIAL IV SCH (08:16)
[2018-08-15] MEDS: MONTELUKAST 10 MG TABLET PO SCH (08:23)
[2018-08-15] MEDS: CHOLECALCIFEROL 1,000 UNIT TABLET PO SCH (08:23)
[2018-08-15] MEDS: CYCLOBENZAPRINE 10 MG TABLET PO SCH ×3 (08:23→22:39)
[2018-08-15] MEDS: CETIRIZINE 10 MG TABLET PO SCH (08:23)
[2018-08-15] MEDS: ASPIRIN EC 325 MG TABLET PO SCH (08:24)
[2018-08-15] MEDS: FERROUS SULFATE 325 MG TABLET PO SCH ×2 (08:24→22:39)
[2018-08-15] MEDS: MULTIVITAMIN (BEROCCA) TABLET PO SCH (08:25)
[2018-08-15] MEDS: POTASSIUM CHLORIDE 10 MEQ TABLET PO SCH (08:25)
[2018-08-15] MEDS: GABAPENTIN 100 MG CAPSULE PO SCH ×3 (08:25→22:39)
[2018-08-15] MEDS: FUROSEMIDE 40 MG TABLET PO SCH (08:25)
[2018-08-15] MEDS: METOPROLOL TARTRATE 100 MG TABLET PO SCH (08:26)
[2018-08-15] MEDS: LACTOBACILLUS ACIDOPHILUS/BULGARICUS CAPLET PO SCH (08:26)
[2018-08-15] MEDS: FLUTICASONE 50 MCG NASAL SPRAY 16 GM BOTTLE BOTH NARES SCH (08:27)
[2018-08-15] MEDS: SODIUM BICARB INJ 150 MEQ in DEXTROSE 5% 850 ML IV SCH ×2 (13:14→22:42)
[2018-08-15] MEDS: cefTRIAXone 2,000 MG in SYRINGE 1 EACH IV SCH (15:02)
[2018-08-15] MEDS: ACETAMINOPHEN 325 MG TABLET PO PRN (16:50)
[2018-08-15] MEDS ORDERED: CELECOXIB 200 MG CAPSULE PO SCH (22:20)
[2018-08-15] MEDS: SIMVASTATIN 20 MG TABLET PO SCH (22:40)
[2018-08-15] MEDS: NORTRIPTYLINE 25 MG CAPSULE PO SCH (22:41)
[2018-08-16] MEDS: ALBUTEROL/IPRATROPIUM 3 ML NEB RESP TX SCH ×4 (00:23→19:22)
[2018-08-16] MEDS: traMADol 50 MG TABLET PO PRN ×2 (01:08→21:29)
[2018-08-16] MEDS: METOPROLOL TARTRATE 100 MG TABLET PO SCH ×3 (01:08→21:32)
[2018-08-16] MEDS: CLINDAMYCIN INJ 600 MG in PREMIX 1 EACH IV SCH ×3 (01:09→16:49)
[2018-08-16 05:06] LABS: Basophils # 0.1 10*3/uL (0.0-0.2); Basophils % 0.4 % (0.0-0.8); Eosinophils # 0.4 10*3/uL (0.0-0.87); Eosinophils % 2.3 % (0.00-10.9); Hemoglobin 7.7 GM/DL (12.0-16.0); Immature Granulocytes % 2.6 %; Immature Granulocytes Absolute 0.48 #; Lymphocytes # 2.3 10*3/uL (1.4-4.0); Lymphocytes % 12.5 % (21.3-54.2); Mean Corpuscular HGB Conc 32.1 GM/DL (32-36); Mean Corpuscular Volume 85.4 FL (87-102); Mean Platelet Volume 9.5 FL (9.6-12.0); Monocytes % 12.2 % (1.7-12.7); NRBC # 0.02 10*3/uL; Platelet Count 477 T/CUMM (130-400); Red Blood Count 2.81 MC/CUMM (3.8-5.5); Red Cell Distribution Width 17.1 % (9.3-17.3); White Blood Count 18.4 T/CUMM (4-12)
[2018-08-16 05:38] LABS: Calcium 8.4 MG/DL (8.5-10.1); Osmolality,Calculated 295.4 MOS/KG (273-304)
[2018-08-16 05:40] LABS: Calcium 8.5 MG/DL (8.5-10.1); Osmolality,Calculated 298.1 MOS/KG (273-304)
[2018-08-16] MEDS: ENOXAPARIN 30 MG/0.3 ML SYRINGE SUBCUT SCH (06:09)
[2018-08-16] MEDS: ACETAMINOPHEN 500 MG TABLET PO SCH ×4 (06:09→21:31)
[2018-08-16] MEDS: SODIUM BICARB INJ 150 MEQ in DEXTROSE 5% 850 ML IV SCH ×3 (09:34→19:11)
[2018-08-16] MEDS: MONTELUKAST 10 MG TABLET PO SCH (09:35)
[2018-08-16] MEDS: POTASSIUM CHLORIDE 10 MEQ TABLET PO SCH (09:36)
[2018-08-16] MEDS: CHOLECALCIFEROL 1,000 UNIT TABLET PO SCH (09:36)
[2018-08-16] MEDS: MULTIVITAMIN (BEROCCA) TABLET PO SCH (09:36)
[2018-08-16] MEDS: LACTOBACILLUS ACIDOPHILUS/BULGARICUS CAPLET PO SCH (09:36)
[2018-08-16] MEDS: GABAPENTIN 100 MG CAPSULE PO SCH ×3 (09:37→21:31)
[2018-08-16] MEDS: FERROUS SULFATE 325 MG TABLET PO SCH ×2 (09:37→21:31)
[2018-08-16] MEDS: ASPIRIN EC 325 MG TABLET PO SCH (09:37)
[2018-08-16] MEDS: FUROSEMIDE 40 MG TABLET PO SCH (09:37)
[2018-08-16] MEDS: CYCLOBENZAPRINE 10 MG TABLET PO SCH ×3 (09:37→21:31)
[2018-08-16] MEDS: CETIRIZINE 10 MG TABLET PO SCH (09:37)
[2018-08-16] MEDS: FLUTICASONE 50 MCG NASAL SPRAY 16 GM BOTTLE BOTH NARES SCH (09:38)
[2018-08-16] MEDS: FAMOTIDINE 20 MG/2 ML VIAL IV SCH (09:39)
[2018-08-16] MEDS: cefTRIAXone 2,000 MG in SYRINGE 1 EACH IV SCH (15:02)
[2018-08-16] MEDS: SIMVASTATIN 20 MG TABLET PO SCH (21:31)
[2018-08-16] MEDS: NORTRIPTYLINE 25 MG CAPSULE PO SCH (21:31)
[2018-08-16] MEDS: LEVOFLOXACIN INJ 500 MG in PREMIX 1 EACH IV SCH (21:32)
[2018-08-17] MEDS: CLINDAMYCIN INJ 600 MG in PREMIX 1 EACH IV SCH ×3 (00:47→16:24)
[2018-08-17] MEDS: ALBUTEROL/IPRATROPIUM 3 ML NEB RESP TX SCH ×4 (01:08→19:38)
[2018-08-17] MEDS: SODIUM BICARB INJ 150 MEQ in DEXTROSE 5% 850 ML IV SCH ×3 (03:35→21:06)
[2018-08-17] MEDS: ACETAMINOPHEN 500 MG TABLET PO SCH ×4 (05:33→22:21)
[2018-08-17] MEDS: ENOXAPARIN 30 MG/0.3 ML SYRINGE SUBCUT SCH (05:33)
[2018-08-17 05:59] LABS: Basophils # 0.1 10*3/uL (0.0-0.2); Basophils % 0.3 % (0.0-0.8); Eosinophils # 0.2 10*3/uL (0.0-0.87); Hematocrit 24.6 VOL% (35.7-47.0); Hemoglobin 7.6 GM/DL (12.0-16.0); Immature Granulocytes % 2.5 %; Immature Granulocytes Absolute 0.42 #; Lymphocytes # 2.2 10*3/uL (1.4-4.0); Lymphocytes % 13.1 % (21.3-54.2); Mean Corpuscular HGB Conc 30.9 GM/DL (32-36); Mean Corpuscular Volume 87.5 FL (87-102); Mean Platelet Volume 9.6 FL (9.6-12.0); Monocytes % 8.5 % (1.7-12.7); Neutrophils % 74.6 % (38.7-73.9); Platelet Count 475 T/CUMM (130-400); Red Blood Count 2.81 MC/CUMM (3.8-5.5)
[2018-08-17 06:44] LABS: Calcium 8.2 MG/DL (8.5-10.1); Osmolality,Calculated 293.4 MOS/KG (273-304)
[2018-08-17] MEDS: GABAPENTIN 100 MG CAPSULE PO SCH ×3 (09:48→21:15)
[2018-08-17] MEDS: CYCLOBENZAPRINE 10 MG TABLET PO SCH ×3 (09:48→21:15)
[2018-08-17] MEDS: FERROUS SULFATE 325 MG TABLET PO SCH ×2 (09:49→21:15)
[2018-08-17] MEDS: LACTOBACILLUS ACIDOPHILUS/BULGARICUS CAPLET PO SCH (09:49)
[2018-08-17] MEDS: METOPROLOL TARTRATE 100 MG TABLET PO SCH ×2 (09:49→21:15)
[2018-08-17] MEDS: CHOLECALCIFEROL 1,000 UNIT TABLET PO SCH (09:49)
[2018-08-17] MEDS: POTASSIUM CHLORIDE 10 MEQ TABLET PO SCH (09:50)
[2018-08-17] MEDS: MONTELUKAST 10 MG TABLET PO SCH (09:50)
[2018-08-17] MEDS: DOCUSATE SODIUM 100 MG CAPSULE PO PRN (09:50)
[2018-08-17] MEDS: FUROSEMIDE 40 MG TABLET PO SCH (09:50)
[2018-08-17] MEDS: ASPIRIN EC 325 MG TABLET PO SCH (09:50)
[2018-08-17] MEDS: CETIRIZINE 10 MG TABLET PO SCH (09:50)
[2018-08-17] MEDS: FLUTICASONE 50 MCG NASAL SPRAY 16 GM BOTTLE BOTH NARES SCH (09:54)
[2018-08-17] MEDS: FAMOTIDINE 20 MG/2 ML VIAL IV SCH (09:58)
[2018-08-17] MEDS: MULTIVITAMIN (BEROCCA) TABLET PO SCH (09:58)
[2018-08-17] MEDS ORDERED: FUROSEMIDE 40 MG/4 ML VIAL IV ONE (13:10)
[2018-08-17] MEDS ORDERED: SODIUM CHLORIDE 0.9% 1,000 ML IV PRN ×2 (13:27→16:51)
[2018-08-17] MEDS ORDERED: POTASSIUM CHLORIDE 10 MEQ TABLET PO ONE (13:34)
[2018-08-17] MEDS ORDERED: FUROSEMIDE 40 MG/4 ML VIAL IV SCH (16:00)
[2018-08-17] MEDS: cefTRIAXone 2,000 MG in SYRINGE 1 EACH IV SCH (16:14)
[2018-08-17] MEDS: SIMVASTATIN 20 MG TABLET PO SCH (21:15)
[2018-08-17] MEDS: NORTRIPTYLINE 25 MG CAPSULE PO SCH (21:15)
[2018-08-18] MEDS: CLINDAMYCIN INJ 600 MG in PREMIX 1 EACH IV SCH (00:40)
[2018-08-18] MEDS: ALBUTEROL/IPRATROPIUM 3 ML NEB RESP TX SCH ×2 (00:50→07:35)
[2018-08-18] MEDS: ACETAMINOPHEN 325 MG TABLET PO PRN (01:41)
[2018-08-18] MEDS: SODIUM BICARB INJ 150 MEQ in DEXTROSE 5% 850 ML IV SCH ×2 (01:55→09:28)
[2018-08-18] MEDS: ACETAMINOPHEN 500 MG TABLET PO SCH ×2 (04:44→11:30)
[2018-08-18 05:40] LABS: Basophils % 0.2 % (0.0-0.8); Eosinophils % 0.3 % (0.00-10.9); Hematocrit 30.1 VOL% (35.7-47.0); Hemoglobin 9.6 GM/DL (12.0-16.0); Immature Granulocytes % 1.4 %; Lymphocytes # 2.4 10*3/uL (1.4-4.0); Lymphocytes % 16.8 % (21.3-54.2); Mean Corpuscular HGB Conc 31.9 GM/DL (32-36); Neutrophils % 77.3 % (38.7-73.9); Platelet Count 449 T/CUMM (130-400); Red Blood Count 3.46 MC/CUMM (3.8-5.5); Red Cell Distribution Width 15.9 % (9.3-17.3); White Blood Count 14.4 T/CUMM (4-12)
[2018-08-18 05:47] LABS: INR 1.2; PT Patient Result 12.7 SECS; Partial Thromboplastin Time 35.6 SECS (0-40)
[2018-08-18 05:53] LABS: Calcium 8.1 MG/DL (8.5-10.1); Osmolality,Calculated 285.1 MOS/KG (273-304)
[2018-08-18] MEDS: ENOXAPARIN 30 MG/0.3 ML SYRINGE SUBCUT SCH (06:36)
[2018-08-18] MEDS ORDERED: MIDAZOLAM 2 MG/2 ML VIAL ONE (07:58)
[2018-08-18] MEDS ORDERED: fentaNYL 100 MCG/2 ML VIAL ONE (07:58)
[2018-08-18] MEDS ORDERED: MEPERIDINE 25 MG/1 ML VIAL IM ONE (08:00)
[2018-08-18] MEDS ORDERED: diphenhydrAMINE 50 MG/1 ML VIAL IM ONE (08:00)
[2018-08-18] MEDS ORDERED: BENZONATATE 100 MG CAPSULE PO ONE (08:00)
[2018-08-18] MEDS ORDERED: LIDOCAINE 2% 20 ML VIAL RESP TX ONE (08:30)
[2018-08-18] MEDS ORDERED: LIDOCAINE 1% 20 ML VIAL MISC INJ ONE (08:30)
[2018-08-18] MEDS ORDERED: LIDOCAINE 2% VISCOUS 100 ML BOTTLE SWISH/SPIT ONE (08:30)
[2018-08-18] MEDS ORDERED: FUROSEMIDE 40 MG/4 ML VIAL IV SCH (09:00)
[2018-08-18] MEDS ORDERED: POTASSIUM CHLORIDE 10 MEQ TABLET PO ONE (09:20)
[2018-08-18] MEDS ORDERED: MAGNESIUM SULF RIDER 2 GM in PREMIX 1 EACH IV ONE (09:20)
[2018-08-18] MEDS: LACTOBACILLUS ACIDOPHILUS/BULGARICUS CAPLET PO SCH (11:29)
[2018-08-18] MEDS: CHOLECALCIFEROL 1,000 UNIT TABLET PO SCH (11:29)
[2018-08-18] MEDS: ASPIRIN EC 325 MG TABLET PO SCH (11:30)
[2018-08-18] MEDS: MONTELUKAST 10 MG TABLET PO SCH (11:30)
[2018-08-18] MEDS: FERROUS SULFATE 325 MG TABLET PO SCH (11:30)
[2018-08-18] MEDS: MULTIVITAMIN (BEROCCA) TABLET PO SCH (11:30)
[2018-08-18] MEDS: METOPROLOL TARTRATE 100 MG TABLET PO SCH (11:30)
[2018-08-18] MEDS: GABAPENTIN 100 MG CAPSULE PO SCH ×2 (11:30→15:12)
[2018-08-18] MEDS: CETIRIZINE 10 MG TABLET PO SCH (11:30)
[2018-08-18] MEDS: CYCLOBENZAPRINE 10 MG TABLET PO SCH ×2 (11:30→15:12)
[2018-08-18] MEDS ORDERED: CLINDAMYCIN INJ 600 MG in PREMIX 1 EACH IV SCH (11:30)
[2018-08-18] MEDS: POTASSIUM CHLORIDE 10 MEQ TABLET PO SCH (11:30)
[2018-08-18] MEDS ORDERED: FLUCONAZOLE 100 MG TABLET PO SCH (11:30)
[2018-08-18] MEDS: FLUTICASONE 50 MCG NASAL SPRAY 16 GM BOTTLE BOTH NARES SCH (11:31)
[2018-08-18] MEDS: FAMOTIDINE 20 MG/2 ML VIAL IV SCH (11:31)
[2018-08-18 11:46] VITALS: BP 132/60
[2018-08-18] MEDS ORDERED: cefTRIAXone 1,000 MG in SYRINGE 1 EACH IV SCH (12:00)
[2018-08-19] MEDS ORDERED: cefTRIAXone 2,000 MG in SYRINGE 1 EACH IV SCH (09:00)
== END 2018-08-18 14:08 | disposition home health service (06) | DRG 853 ==
LOC: N.ICU 20:43 → SUATTDRO 20:43 → N.5E 21:58 → N.ICU 08-13 11:02 → N.TELES 08-15 16:30
PROVIDERS: ADMIT Internal Medicine; ATTEND Internal Medicine
PROC: IRTHORA (2018-08-09 09:20)

== ENCOUNTER 2021-12-25 14:13 | Inpatient (IN) ==
[2021-12-25] MEDS ORDERED: SODIUM CHLORIDE 0.9% 1,000 ML IV STA (14:50)
[2021-12-25 15:31] LABS: PT Patient Result 11.1 SECS (10.1-12.1)
[2021-12-25 15:34] LABS: Bilirubin,Urine Negative (Negative); Blood, Urine Small mg/dL (Negative); Calcium Oxalate Crystals,Urine Occasional /HPF (Few); Glucose,Urine (UA) 50 mg/dL (Negative); Hyaline Casts,Urine 3 /LPF (0-3); Ketones,Urine 20 mg/dL (Negative); Mucus,Urine Occasional /LPF (Occasional); Nitrite,Urine Negative (Negative); Protein,Urine >=500 mg/dL (Negative); RBC,Urine 31 /HPF (0-4); Squamous Epithelial Cell,Urine Occasional /HPF (0-10); Urine Appearance Slightly Hazy (Clear); Urine Color Amber (Yellow); Urine Specific Gravity 1.023 (1.001-1.035)
[2021-12-25 15:46] LABS: Albumin 3.2 G/DL (3.4-5.0); Bilirubin,Total 0.6 MG/DL (0.20-1.00); Calcium 12.9 MG/DL (8.5-10.1); Osmolality,Calculated 283.1 MOS/KG (273-304); Potassium 3.8 MMOL/L (3.5-5.1); Total Protein 7.6 G/DL (6.4-8.2)
[2021-12-25 16:01] LABS: Basophils # 0.1 10*3/uL (0.0-0.2); Basophils % 0.3 % (0.0-0.8); Eosinophils % 0.1 % (0.00-10.9); Hematocrit 43.6 VOL% (35.7-47.0); Immature Granulocytes % 0.5 %; Immature Granulocytes Absolute 0.08 #; Lymphocytes # 1.5 10*3/uL (1.4-4.0); Lymphocytes % 9.7 % (21.3-54.2); Mean Corpuscular HGB Conc 32.1 GM/DL (32-36); Mean Corpuscular Volume 91.4 FL (87-102); Mean Platelet Volume 11.5 FL (9.6-12.0); Monocytes # 1.9 10*3/uL (0.11-0.8); Monocytes % 12.1 % (1.7-12.7); Neutrophils % 77.3 % (38.7-73.9); Platelet Count 284 T/CUMM (130-400); Red Blood Count 4.77 MC/CUMM (3.8-5.5); Red Cell Distribution Width 14.1 % (9.3-17.3); White Blood Count 15.3 T/CUMM (4-12)
[2021-12-25] MEDS ORDERED: PIPERACILLIN/TAZOBACTAM 3,375 MG in SODIUM CHLORIDE 0.9% 100 ML IV STA (16:10)
[2021-12-25] MEDS ORDERED: LACTATED RINGERS 1,700 ML IV ONE (16:59)
[2021-12-25] MEDS ORDERED: hydrALAZINE 20 MG/1 ML VIAL IV PRN (17:00)
[2021-12-25] MEDS ORDERED: ACETAMINOPHEN 325 MG TABLET PO PRN (17:00)
[2021-12-25] MEDS ORDERED: ONDANSETRON 4 MG/2 ML VIAL IV PRN (17:00)
[2021-12-25 17:38] LABS: Risk Ratio 2.23; Thyroid Stimulating Hormone 3.58 uIU/ml (0.358-3.74); VLDL Cholesterol 22.4 MG/DL
[2021-12-25 17:57] LABS: Folate 22.32 NG/ML (5.38-24.0)
[2021-12-25] MEDS ORDERED: INFLUENZA VIRUS VACCINE 0.5 ML SYRINGE IM ONE (18:30)
[2021-12-25] MEDS ORDERED: PNEUMOCOCCAL VACCINE (13 VALENT) 0.5 ML SYRINGE IM ONE (18:30)
[2021-12-25] MEDS: VANCOMYCIN INJ 1,000 MG in SODIUM CHLORIDE 0.9% 250 ML IV STA ×2 (19:00→20:18)
[2021-12-25] MEDS: LACTATED RINGERS 1,000 ML IV ONE ×2 (19:05→20:19)
[2021-12-25] MEDS: LACTATED RINGERS 1,000 ML IV SCH (20:19)
[2021-12-25] MEDS ORDERED: ENOXAPARIN 40 MG/0.4 ML SYRINGE SUBCUT SCH (21:00)
[2021-12-25] MEDS: HEPARIN DRIP 25,000 UNITS/500 ML PREMIX IV SCH (22:01)
[2021-12-25] MEDS: DOCUSATE SODIUM 100 MG CAPSULE PO SCH (22:04)
[2021-12-25] MEDS: ARIPiprazole 5 MG TABLET PO SCH (22:04)
[2021-12-26] MEDS: PIPERACILLIN/TAZOBACTAM 3,375 MG in SODIUM CHLORIDE 0.9% 100 ML IV SCH ×3 (00:50→16:05)
[2021-12-26 02:39] LABS: Basophils % 0.3 % (0.0-0.8); Hemoglobin 12.1 GM/DL (12.0-16.0); Immature Granulocytes % 0.5 %; Immature Granulocytes Absolute 0.07 #; Lymphocytes # 2.6 10*3/uL (1.4-4.0); Lymphocytes % 19.7 % (21.3-54.2); Mean Corpuscular HGB Conc 32.7 GM/DL (32-36); Mean Corpuscular Volume 91.1 FL (87-102); Mean Platelet Volume 10.7 FL (9.6-12.0); Monocytes # 1.7 10*3/uL (0.11-0.8); Monocytes % 12.7 % (1.7-12.7); Neutrophils % 66.8 % (38.7-73.9); Platelet Count 250 T/CUMM (130-400); Red Blood Count 4.06 MC/CUMM (3.8-5.5); Red Cell Distribution Width 14.2 % (9.3-17.3); White Blood Count 13.4 T/CUMM (4-12)
[2021-12-26 03:13] LABS: Calcium 11.5 MG/DL (8.5-10.1); Osmolality,Calculated 287.8 MOS/KG (273-304); Potassium 3.3 MMOL/L (3.5-5.1)
[2021-12-26] MEDS: VANCOMYCIN INJ 1,250 MG in SODIUM CHLORIDE 0.9% 250 ML IV SCH ×2 (04:00→15:07)
[2021-12-26] MEDS: POTASSIUM CHLORIDE RIDER 10 MEQ/100 ML PREMIX IV PRN ×4 (05:00→09:22)
[2021-12-26] MEDS: LACTATED RINGERS 1,000 ML IV SCH ×3 (07:44→17:28)
[2021-12-26] MEDS ORDERED: POTASSIUM CHLORIDE 20 MEQ TABLET PO ONE (08:00)
[2021-12-26] MEDS: METOPROLOL TARTRATE 50 MG TABLET PO SCH (08:18)
[2021-12-26] MEDS: DIVALPROEX ER 500 MG TABLET PO SCH (08:18)
[2021-12-26] MEDS: PANTOPRAZOLE 40 MG TABLET PO SCH (08:18)
[2021-12-26] MEDS: DOCUSATE SODIUM 100 MG CAPSULE PO SCH ×2 (08:19→21:38)
[2021-12-26] MEDS ORDERED: POTASSIUM CHLORIDE INJ 30 MEQ in LACTATED RINGERS 1,000 ML IV SCH (08:30)
[2021-12-26] MEDS: HEPARIN DRIP 25,000 UNITS/500 ML PREMIX IV SCH ×2 (14:00→20:02)
[2021-12-26] MEDS: BACITRACIN OINT 0.9 GM PACK TOP SCH (15:07)
[2021-12-26 19:18] LABS: INR 1.2; PT Patient Result 13.5 SECS (10.1-12.1)
[2021-12-26 19:21] LABS: Partial Thromboplastin Time 106.5 SECS (23.7-32.9)
[2021-12-26] MEDS: ARIPiprazole 5 MG TABLET PO SCH (21:38)
[2021-12-26] MEDS: CHOLECALCIFEROL 5,000 UNIT TABLET PO SCH (21:38)
[2021-12-26] MEDS: ZINC OXIDE 16% PASTE 57 GM TUBE TOP SCH (21:44)
[2021-12-27] MEDS: PIPERACILLIN/TAZOBACTAM 3,375 MG in SODIUM CHLORIDE 0.9% 100 ML IV SCH ×3 (00:09→15:06)
[2021-12-27 02:25] LABS: Basophils # 0.1 10*3/uL (0.0-0.2); Basophils % 0.7 % (0.0-0.8); Eosinophils # 0.1 10*3/uL (0.0-0.87); Eosinophils % 0.5 % (0.00-10.9); Hematocrit 36.5 VOL% (35.7-47.0); Hemoglobin 11.4 GM/DL (12.0-16.0); Immature Granulocytes % 0.5 %; Immature Granulocytes Absolute 0.06 #; Lymphocytes # 3.8 10*3/uL (1.4-4.0); Lymphocytes % 29.8 % (21.3-54.2); Mean Corpuscular HGB Conc 31.2 GM/DL (32-36); Mean Corpuscular Volume 94.1 FL (87-102); Monocytes # 1.6 10*3/uL (0.11-0.8); Monocytes % 12.5 % (1.7-12.7); Platelet Count 245 T/CUMM (130-400); Red Blood Count 3.88 MC/CUMM (3.8-5.5); Red Cell Distribution Width 14.5 % (9.3-17.3); White Blood Count 12.7 T/CUMM (4-12)
[2021-12-27 02:42] LABS: Calcium 10.9 MG/DL (8.5-10.1); Osmolality,Calculated 286.8 MOS/KG (273-304); Potassium 3.8 MMOL/L (3.5-5.1)
[2021-12-27] MEDS: VANCOMYCIN INJ 1,250 MG in SODIUM CHLORIDE 0.9% 250 ML IV SCH (05:00)
[2021-12-27] MEDS: LACTATED RINGERS 1,000 ML IV SCH ×3 (05:11→23:46)
[2021-12-27] MEDS: BACITRACIN OINT 0.9 GM PACK TOP SCH (08:10)
[2021-12-27] MEDS: METOPROLOL TARTRATE 50 MG TABLET PO SCH (08:10)
[2021-12-27] MEDS: DIVALPROEX ER 500 MG TABLET PO SCH (08:10)
[2021-12-27] MEDS: PANTOPRAZOLE 40 MG TABLET PO SCH (08:10)
[2021-12-27] MEDS: CHOLECALCIFEROL 5,000 UNIT TABLET PO SCH ×2 (08:10→21:24)
[2021-12-27] MEDS: ZINC OXIDE 16% PASTE 57 GM TUBE TOP SCH ×2 (08:11→21:24)
[2021-12-27] MEDS: DOCUSATE SODIUM 100 MG CAPSULE PO SCH ×2 (08:11→21:23)
[2021-12-27] MEDS ORDERED: POTASSIUM PHOSPHATE 15 MMOL in SODIUM CHLORIDE 0.9% 100 ML IV ONE (10:30)
[2021-12-27] MEDS: ARIPiprazole 5 MG TABLET PO SCH (21:24)
[2021-12-27] MEDS: HEPARIN DRIP 25,000 UNITS/500 ML PREMIX IV SCH (21:24)
[2021-12-28] MEDS: PIPERACILLIN/TAZOBACTAM 3,375 MG in SODIUM CHLORIDE 0.9% 100 ML IV SCH ×3 (00:34→15:16)
[2021-12-28 05:50] LABS: Basophils # 0.1 10*3/uL (0.0-0.2); Basophils % 0.6 % (0.0-0.8); Eosinophils # 0.2 10*3/uL (0.0-0.87); Eosinophils % 1.8 % (0.00-10.9); Hematocrit 31.5 VOL% (35.7-47.0); Hemoglobin 9.8 GM/DL (12.0-16.0); Immature Granulocytes % 0.7 %; Immature Granulocytes Absolute 0.06 #; Lymphocytes # 3.3 10*3/uL (1.4-4.0); Lymphocytes % 37.7 % (21.3-54.2); Mean Corpuscular HGB Conc 31.1 GM/DL (32-36); Mean Corpuscular Volume 94.3 FL (87-102); Mean Platelet Volume 11.1 FL (9.6-12.0); Monocytes # 1.1 10*3/uL (0.11-0.8); Monocytes % 12.4 % (1.7-12.7); Neutrophils % 46.8 % (38.7-73.9); Platelet Count 244 T/CUMM (130-400); Red Blood Count 3.34 MC/CUMM (3.8-5.5); Red Cell Distribution Width 14.4 % (9.3-17.3); White Blood Count 8.9 T/CUMM (4-12)
[2021-12-28 06:19] LABS: Calcium 9.9 MG/DL (8.5-10.1); Osmolality,Calculated 287.7 MOS/KG (273-304); Potassium 3.7 MMOL/L (3.5-5.1)
[2021-12-28] MEDS: DIVALPROEX ER 500 MG TABLET PO SCH (08:55)
[2021-12-28] MEDS: CHOLECALCIFEROL 5,000 UNIT TABLET PO SCH ×2 (08:55→20:57)
[2021-12-28] MEDS: BACITRACIN OINT 0.9 GM PACK TOP SCH (08:56)
[2021-12-28] MEDS: ZINC OXIDE 16% PASTE 57 GM TUBE TOP SCH ×2 (08:56→20:57)
[2021-12-28] MEDS: METOPROLOL TARTRATE 50 MG TABLET PO SCH (08:56)
[2021-12-28] MEDS: DOCUSATE SODIUM 100 MG CAPSULE PO SCH ×2 (08:56→20:57)
[2021-12-28] MEDS: PANTOPRAZOLE 40 MG TABLET PO SCH (08:56)
[2021-12-28] MEDS: LACTATED RINGERS 1,000 ML IV SCH ×2 (10:30→19:12)
[2021-12-28] MEDS: ARIPiprazole 5 MG TABLET PO SCH (20:57)
[2021-12-29] MEDS: PIPERACILLIN/TAZOBACTAM 3,375 MG in SODIUM CHLORIDE 0.9% 100 ML IV SCH ×3 (00:37→15:47)
[2021-12-29] MEDS: HEPARIN DRIP 25,000 UNITS/500 ML PREMIX IV SCH (06:08)
[2021-12-29] MEDS: LACTATED RINGERS 1,000 ML IV SCH ×2 (06:08→15:47)
[2021-12-29] MEDS: CHOLECALCIFEROL 5,000 UNIT TABLET PO SCH ×2 (08:25→20:50)
[2021-12-29] MEDS: METOPROLOL TARTRATE 50 MG TABLET PO SCH (08:25)
[2021-12-29] MEDS: DOCUSATE SODIUM 100 MG CAPSULE PO SCH ×2 (08:25→20:50)
[2021-12-29] MEDS: DIVALPROEX ER 500 MG TABLET PO SCH (08:25)
[2021-12-29] MEDS: PANTOPRAZOLE 40 MG TABLET PO SCH (08:25)
[2021-12-29] MEDS: BACITRACIN OINT 0.9 GM PACK TOP SCH (08:30)
[2021-12-29] MEDS: ZINC OXIDE 16% PASTE 57 GM TUBE TOP SCH ×2 (08:30→20:50)
[2021-12-29] MEDS: ARIPiprazole 5 MG TABLET PO SCH (20:50)
[2021-12-29] MEDS: SIMVASTATIN 20 MG TABLET PO SCH (20:50)
[2021-12-29] MEDS: APIXABAN 5 MG TABLET PO SCH (20:50)
[2021-12-30] MEDS: PIPERACILLIN/TAZOBACTAM 3,375 MG in SODIUM CHLORIDE 0.9% 100 ML IV SCH ×3 (00:50→18:30)
[2021-12-30 06:07] LABS: Basophils % 0.6 % (0.0-0.8); Eosinophils # 0.2 10*3/uL (0.0-0.87); Eosinophils % 2.5 % (0.00-10.9); Hematocrit 28.2 VOL% (35.7-47.0); Immature Granulocytes % 0.6 %; Immature Granulocytes Absolute 0.04 #; Lymphocytes # 2.3 10*3/uL (1.4-4.0); Lymphocytes % 34.2 % (21.3-54.2); Mean Corpuscular HGB Conc 31.9 GM/DL (32-36); Mean Corpuscular Volume 93.4 FL (87-102); Monocytes # 1.1 10*3/uL (0.11-0.8); Monocytes % 16.3 % (1.7-12.7); Neutrophils % 45.8 % (38.7-73.9); Platelet Count 252 T/CUMM (130-400); Red Blood Count 3.02 MC/CUMM (3.8-5.5); Red Cell Distribution Width 14.5 % (9.3-17.3); White Blood Count 6.8 T/CUMM (4-12)
[2021-12-30 06:30] LABS: Hypochromia Slight; Lymphocytes 37 % (20-55); Microcytosis Slight; Total Cells Counted 100
[2021-12-30 06:31] LABS: Platelet Estimate Normal
[2021-12-30 06:36] LABS: Calcium 10.2 MG/DL (8.5-10.1); Osmolality,Calculated 284.7 MOS/KG (273-304); Potassium 3.7 MMOL/L (3.5-5.1)
[2021-12-30] MEDS ORDERED: MAGNESIUM SULF RIDER 4 GM/100 ML PREMIX IV PRN (07:28)
[2021-12-30] MEDS ORDERED: MAGNESIUM SULF RIDER 2 GM/50 ML PREMIX IV PRN (07:28)
[2021-12-30] MEDS: BACITRACIN OINT 0.9 GM PACK TOP SCH (09:44)
[2021-12-30] MEDS: ZINC OXIDE 16% PASTE 57 GM TUBE TOP SCH ×2 (09:44→21:00)
[2021-12-30] MEDS: DOCUSATE SODIUM 100 MG CAPSULE PO SCH ×2 (09:45→20:56)
[2021-12-30] MEDS: DIVALPROEX ER 500 MG TABLET PO SCH (09:46)
[2021-12-30] MEDS: APIXABAN 5 MG TABLET PO SCH ×2 (09:46→20:56)
[2021-12-30] MEDS: CHOLECALCIFEROL 5,000 UNIT TABLET PO SCH ×2 (09:50→20:57)
[2021-12-30] MEDS: METOPROLOL TARTRATE 50 MG TABLET PO SCH (09:50)
[2021-12-30] MEDS: PANTOPRAZOLE 40 MG TABLET PO SCH (09:50)
[2021-12-30] MEDS: LACTATED RINGERS 1,000 ML IV SCH (18:28)
[2021-12-30] MEDS: ARIPiprazole 5 MG TABLET PO SCH (20:56)
[2021-12-30] MEDS: SIMVASTATIN 20 MG TABLET PO SCH (20:57)
[2021-12-31] MEDS: PIPERACILLIN/TAZOBACTAM 3,375 MG in SODIUM CHLORIDE 0.9% 100 ML IV SCH (00:35)
[2021-12-31 06:03] LABS: Basophils # 0.1 10*3/uL (0.0-0.2); Basophils % 0.8 % (0.0-0.8); Eosinophils # 0.3 10*3/uL (0.0-0.87); Eosinophils % 3.8 % (0.00-10.9); Hemoglobin 9.5 GM/DL (12.0-16.0); Immature Granulocytes % 0.7 %; Immature Granulocytes Absolute 0.05 #; Lymphocytes # 2.8 10*3/uL (1.4-4.0); Lymphocytes % 38.5 % (21.3-54.2); Mean Corpuscular HGB Conc 31.7 GM/DL (32-36); Mean Corpuscular Volume 94.3 FL (87-102); Monocytes # 1.1 10*3/uL (0.11-0.8); Monocytes % 15.4 % (1.7-12.7); Neutrophils % 40.8 % (38.7-73.9); Platelet Count 270 T/CUMM (130-400); Red Blood Count 3.18 MC/CUMM (3.8-5.5); Red Cell Distribution Width 14.3 % (9.3-17.3); White Blood Count 7.4 T/CUMM (4-12)
[2021-12-31 06:30] LABS: Calcium 10.9 MG/DL (8.5-10.1); Osmolality,Calculated 286.6 MOS/KG (273-304); Potassium 3.9 MMOL/L (3.5-5.1)
[2021-12-31] MEDS: APIXABAN 5 MG TABLET PO SCH (09:16)
[2021-12-31] MEDS: DOCUSATE SODIUM 100 MG CAPSULE PO SCH (09:16)
[2021-12-31] MEDS: CHOLECALCIFEROL 5,000 UNIT TABLET PO SCH (09:16)
[2021-12-31] MEDS: PANTOPRAZOLE 40 MG TABLET PO SCH (09:16)
[2021-12-31] MEDS: METOPROLOL TARTRATE 50 MG TABLET PO SCH (09:16)
[2021-12-31] MEDS: DIVALPROEX ER 500 MG TABLET PO SCH (09:16)
[2021-12-31] MEDS: ZINC OXIDE 16% PASTE 57 GM TUBE TOP SCH (09:17)
[2021-12-31] MEDS: BACITRACIN OINT 0.9 GM PACK TOP SCH (09:17)
[2021-12-31] MEDS ORDERED: INFLUENZA VIRUS VACCINE 0.5 ML SYRINGE IM ONE (12:25)
[2021-12-31] MEDS ORDERED: PNEUMOCOCCAL VACCINE (13 VALENT) 0.5 ML SYRINGE IM ONE (13:00)
[2021-12-31 15:52] VITALS: BP 145/52
== END 2021-12-31 17:40 | disposition swing bed (61) | DRG 565 ==
LOC: N.ED 14:13 → N.EDINP 16:40 → SUATTDRO 16:40 → N.EDINP 17:39 → N.3E 18:13
PROVIDERS: ADMIT Internal Medicine; ATTEND Internal Medicine